=== PATIENT | female | born 1980 | race Caucasian/White ===

== ENCOUNTER → 2017-10-18 | Outpatient (CLI) | payer OTHER | END | disposition home or self-care (01) | LOC: PPHC 09:00 → PPH VACUNA 09:42 | DX: Z23 Encounter for immunization (principal) ==

== ENCOUNTER 2017-12-02 07:20 | Inpatient (IN) | payer OTHER ==
[~2017-12-02] VITALS: Ht 160 cm; Wt 76.2 kg
[2017-12-02] MEDS ORDERED: PRENATAL 19 TA1 EAC1 PO (11:20)
== END 2017-12-04 10:47 | disposition home or self-care (01) | DRG 775 ==
LOC: LDR 07:20 → OB/GYN 16:28
PROC: 0UQMXZZ Repair Vulva, External Approach (ICD-10-PCS; principal; 2017-12-02)
PROC: 10E0XZZ Delivery of Products of Conception, External Approach (ICD-10-PCS; 2017-12-02)
PROC: 4A1HXCZ Monitoring of Products of Conception, Cardiac Rate, External Approach (ICD-10-PCS; 2017-12-02)
DX: O71.82 Other specified trauma to perineum and vulva (principal); Z3A.37 37 weeks gestation of pregnancy; Z37.0 Single live birth